=== PATIENT | female | born 1945 | race African-American/Black ===

== ENCOUNTER 2017-05-05 06:50 | Inpatient (IN) ==
--- NOTE | 2017-05-05 06:57 | Emergency Department Note ---
Arrival - Arrival Chief Complaint: Shortness of Breath Mode of Arrival: Stretcher Limitations: No Limitations Source: Patient, RN Notes Reviewed Time Seen by Provider: 05/05/17 06:55 - History of Present Illness HPI Narrative: Patient is a 71-year-old black female with history of end-stage renal disease who is on Friday hemodialysis by Dr. Antoine. The patient presented to [facility] in [facility] this morning with shortness of breath. The patient states that she awakened at 1 AM with shortness of breath. She denies being noncompliant with her diet over the weekend. The patient states that she went to dialysis on Friday as scheduled. The patient was noted to be markedly hypertensive at [facility]. The patient was placed on a nonrebreather and transferred to [facility] for further treatment and evaluation. The patient recently underwent left heart cath that [facility]. The patient was transferred to [facility] as they([facility]) had no critical care beds. Onset (ago): hour(s) (6) Consistency: constant Severity: moderate Quality: other Allergies/Adverse Reactions: Allergies Allergy/AdvReac Type Severity Reaction Status Date / Time No Known Allergies Allergy Verified 05/05/17 07:07 Home Medications: Home Medications Medication Instructions Recorded Confirmed Type Carvedilol 25 mg PO BID 03/14/16 05/01/17 History Estradiol [Estradiol Tab] 1 mg PO DAILY 03/14/16 05/01/17 History cloNIDine HCl [Clonidine HCl] 0.1 mg PO TID 03/14/16 05/01/17 History Insulin Detemir [Levemir] 4 unit SUBCUT BEDTIME 08/20/16 05/01/17 History NIFEdipine XL TAB [Procardia Xl] 90 mg PO DAILY 08/20/16 05/01/17 History Bisacodyl [Correctol] 5 mg PO DAILY PRN 08/22/16 05/01/17 History Calcium Acetate 667 mg PO TID W/MEALS 08/22/16 05/01/17 History Calcium Acetate 667 mg PO WITH SNACKS 08/22/16 05/01/17 History Docusate Sodium Cap [Colace Cap] 100 mg PO BID PRN 08/22/16 05/01/17 History Lidocaine/Prilocaine 1 applic TOP MOWEFR 08/22/16 05/01/17 History [Lidocaine/Prilocaine 2.5%-2.5% Cream Kit] Atorvastatin [Lipitor] 40 mg PO BEDTIME #30 tablet 08/23/16 05/01/17 Rx Heparin Inj 2,000 unit IV .EA DIALYSIS PORT 08/23/16 05/01/17 Rx PRN #0 vial Ticagrelor [Brilinta] 90 mg PO BID #60 tablet 08/23/16 05/01/17 Rx hydrALAZINE TAB [Apresoline Tab] 100 mg PO TID #90 tablet 08/23/16 05/01/17 Rx Aspirin EC Tab 81 mg PO BEDTIME 05/01/17 05/01/17 History Review of System - Review of System 12 point system: reviewed and no additional remarkable complaints except as stated - Review of System Constitutional: Absent: chills, fever Respiratory: Absent: cough Cardiovascular: Absent: chest pain, palpitations Gastrointestinal: Absent: nausea, vomiting Medical,Surgical,& Family Hx - Medical History Cardio: History of: CAD, Hypertension Neurology: No history of: Seizures - Surgical History Cardiac Surgeries: Sugical HX of: Cardiac Catheterization - Family History Family History: Reports;: Family Diabetes, Family Heart Disease, Family Hypertension - Social History Smoking Status: Never smoker Exam Vital Signs: Vital Signs Temperature 96.5 F L 05/05/17 06:59 Pulse Rate 90 05/05/17 06:59 Respiratory Rate 20 05/05/17 07:17 Blood Pressure 227/98 05/05/17 06:59 O2 Sat by Pulse Oximetry 100 05/05/17 06:59 GENERAL: This is a well-nourished well-developed black female in no apparent distress. VITAL SIGNS: Reviewed HEENT: Head is atraumatic and normocephalic. Pupils are equal round react to light. Extraocular movements are intact. Oropharynx is benign with moist mucous membranes. NECK: Neck is soft and supple without tenderness. There are no masses. There is no lymphadenopathy. LUNGS: Lungs are clear to auscultation. Chest rises symmetrically. There is no chest wall tenderness. CV: Heart is regular rate and rhythm without murmurs rubs or gallops. ABDOMEN: Abdomen is soft, nontender to palpation. There are no abdominal abnormal masses palpated. There is no organomegaly. Bowel sounds are present and active. SKIN: Skin is warm and dry. No rash. EXTREMITIES: Patient has full range of motion without tenderness. There is no pedal edema. NEUROLOGIC: Awake alert and oriented 4. Cranial nerves II through XII are grossly intact. Motor is 5 over 5 in all extremities bilaterally. Course - Consultations Consultation #1: Discussed with hospitalist. Patient will be admitted to their service. Time: 07:05 Results - Labs Lab Results: I have reviewed the patients labs Labs: Lab performed at [facility] reviewed by me: Chemistry: Sodium 143, potassium 4.7, chloride 99, CO2 23, BUN 49, creatinine 10.4, glucose 216, magnesium 2.5 Lactic acid 5.1 CBC: WBCs 10,600, hemoglobin 9.9, hematocrit 31.6, platelet count 195,000 EKG: Sinus tachycardia with occasional PVCs, ST segment depression inferiorly, rate 114, LVH ABG: PH 7.29, PCO2 52, PO2 161 Urinalysis specific gravity 1.010, pH 8.0, nitrite negative, protein 4+, glucose 2+-3+, RBCs 5-10 BNP: Greater than 20,000 - EKG EKG results: interpreted by ERMD - Impressions EKG performed in the emergency department: Right 91, sinus rhythm, LVH with repolarization abnormality - Diagnostic Findings Procedure: Chest x-ray: image reviewed by me (Chest x-ray performed at [facility]: Increased pulmonary markings bilaterally. Dialysis catheter is in place with the tip in the superior vena cava.) Disposition Clinical Impression: End-stage renal disease on hemodialysis, Dyspnea, Acute respiratory failure, Malignant hypertension, Diabetes mellitus, Pulmonary edema Case discussed with: patient Disposition: Still a Patient Condition: Stable Time of Disposition: 07:04
--- NOTE | 2017-05-05 07:01 | Order Completion Report ---
See report scanned to EMR
[2017-05-05] MEDS ORDERED: hydrALAZINE 20 MG/1 ML VIAL IV STA (07:11)
[2017-05-05] MEDS ORDERED: hydrALAZINE 20 MG/1 ML VIAL ONE (07:11)
[2017-05-05] MEDS ORDERED: niCARdipine INJ 25 MG in SODIUM CHLORIDE 0.9% 240 ML IV SCH (07:30)
--- NOTE | 2017-05-05 07:32 | XRay Report ---
XR chest 1V portable Indication: Dyspnea Comparison: 05 May 2017 at 4:36 AM Findings: The heart and mediastinum are stable in size and configuration. Right internal jugular catheters unchanged in position. The pulmonary vascularity is increased with bilateral increased interstitial lung density similar to previous. No other lung infiltrates, effusions, pneumothorax or other abnormality is demonstrated. Impression: Findings suggest cardiac decompensation similar to previous. PROCEDURE INTERPRETED AT [facility] DEPARTMENT OF RADIOLOGY Final Report Signed by: Dr. Remy Early
[2017-05-05] MEDS ORDERED: cloNIDine 0.1 MG TABLET ONE (07:35)
[2017-05-05] MEDS ORDERED: cloNIDine 0.1 MG TABLET PO STA (07:38)
--- NOTE | 2017-05-05 08:01 | Hospitalist History & Physical ---
Assessment and Plan (1) Dyspnea Status: Acute Assessment and plan: Chest x-ray was significant for increased pulmonary vascularity with bilateral increased interstitial lung density. This is likely secondary to severe fluid volume overload. Nephrology has been consulted for emergent hemodialysis. We will continue supportive care as previously ordered. Current Visit: Yes (2) End-stage renal disease on hemodialysis Status: Acute Assessment and plan: Last hemodialysis session was reported on Tuesday, May 02, 2017. The patient is generally dialyzed on [id number]. The patient reported a uneventful hemodialysis session. In addition, the patient reported that she has been compliant with all of her medication and dietary regimen. Nephrology has been consulted for emergent hemodialysis. Nephrology to manage. Current Visit: Yes History of Present Illness Chief complaint: Shortness of breath History of present illness: This is a chronically ill 71-year-old female that presented to the ED at [facility] as a transfer from the [facility] in [place], [place] this morning for the evaluation of shortness of breath. The patient has a medical history significant for end-stage renal disease, insulin-dependent diabetes mellitus, chronic constipation, hypertension , and coronary artery disease. Patient has a surgical history significant for cardiac catheterization. Patient reported the onset of symptoms this morning around 0100. The patient reported that she was awakened out of her sleep due to severe shortness of breath. She became alarmed and presented to the ED at [facility] [place] in [place], [place] for further evaluation. The patient was evaluated at the time of presentation at the [facility]. The patient was noted to be grossly hypertensive with systolic blood pressures well above 220. In addition, the patient was noted to be experiencing severe respiratory difficulties prompting a subsequent transfer to [facility] for further evaluation. The patient was assessed at the time of ED presentation at [facility]. The patient remained grossly hypertensive with a blood pressure noted at 227/98. Multiple intravenous antihypertensive agents were initiated and the patient's blood pressure slowly improved. Labs were obtained at [facility] which were significant for sodium 143, potassium 4.7 , chloride 99, carbon dioxide 23, BUN 49, creatinine 10.4, glucose 216, magnesium 2.5, lactic acid 5.1, white blood cell count 10.6, hemoglobin 9.9, hematocrit 31.6, and platelet 195. In addition, the patient's BNP was noted to be greater than 20,000. Arterial blood gas reported pH 7.29, PCO2 52, PO2 161. Chest x-ray was significant for increased pulmonary vascularity with bilateral increased interstitial lung density. These findings suggest cardiac decompensation however, no additional lung infiltrates, effusions, pneumothorax , or other abnormality was demonstrated. After brief discussion with both Dr. Casarez and Dr. Low, the patient will be admitted to the hospitalist service for continuation of care. Due to the severity of the patient's presenting symptoms, a nephrology consultation has been requested. Home medications have been reviewed and reconciled. CODE STATUS discussed, patient is a FULL CODE. Home Medications Medication Instructions Recorded Confirmed Type Carvedilol 25 mg PO BID 03/14/16 05/01/17 History Estradiol [Estradiol Tab] 1 mg PO DAILY 03/14/16 05/01/17 History cloNIDine HCl [Clonidine HCl] 0.1 mg PO TID 03/14/16 05/01/17 History Insulin Detemir [Levemir] 4 unit SUBCUT BEDTIME 08/20/16 05/01/17 History NIFEdipine XL TAB [Procardia Xl] 90 mg PO DAILY 08/20/16 05/01/17 History Bisacodyl [Correctol] 5 mg PO DAILY PRN 08/22/16 05/01/17 History Calcium Acetate 667 mg PO TID W/MEALS 08/22/16 05/01/17 History Calcium Acetate 667 mg PO WITH SNACKS 08/22/16 05/01/17 History Docusate Sodium Cap [Colace Cap] 100 mg PO BID PRN 08/22/16 05/01/17 History Lidocaine/Prilocaine 1 applic TOP MOWEFR 08/22/16 05/01/17 History [Lidocaine/Prilocaine 2.5%-2.5% Cream Kit] Atorvastatin [Lipitor] 40 mg PO BEDTIME #30 tablet 08/23/16 05/01/17 Rx Heparin Inj 2,000 unit IV .EA DIALYSIS PORT 08/23/16 05/01/17 Rx PRN #0 vial Ticagrelor [Brilinta] 90 mg PO BID #60 tablet 08/23/16 05/01/17 Rx hydrALAZINE TAB [Apresoline Tab] 100 mg PO TID #90 tablet 08/23/16 05/01/17 Rx Aspirin EC Tab 81 mg PO BEDTIME 05/01/17 05/01/17 History Allergies Allergy/AdvReac Type Severity Reaction Status Date / Time No Known Allergies Allergy Verified 05/05/17 07:07 Medical,Surgical,& Family Hx - Medical History Cardio: History of: CAD, Hypertension Neurology: No history of: Seizures - Surgical History Cardiac Surgeries: Sugical HX of: Cardiac Catheterization - Family History Family History: Reports;: Family Diabetes, Family Heart Disease, Family Hypertension - Social History Smoking Status: Never smoker Have you smoked in the last 12 months: No Frequency of Alcohol Use: None Type of Drug Use: None Marital Status: Single Lives With:: Alone Functional capacity: independent ambulation 12 point system: reviewed and no additional remarkable complaints except as stated Exam - Constitutional Vitals: Period Temp Pulse Resp BP Sys/Sexton Pulse Ox Last 24 Hr 96.5 F-96.5 F 90-90 20-20 227-227/98-98 100 General appearance: normal weight, mild distress - Head Head exam: Present: normal inspection, normocephalic, atraumatic - Eye Eye exam: Present: EOMI. Absent: conjunctival injection Pupils: Present: ERIC, normal accommodation - ENT ENT exam: Present: normal exam, normal external ear exam, normal oropharynx - Neck Neck exam: Present: normal inspection. Absent: lymphadenopathy, meningismus, thyromegaly - Respiratory Respiratory exam: Absent: clear to auscultation bilaterally, rales, rhonchi, stridor - Cardiovascular Cardiovascular exam: Present: regular rate and rhythm, other (Vas-Cath to right upper chest no). Absent: carotid bruit, diastolic murmur, gallop, JVD, rubs, systolic murmur - GI/Abdominal GI/Abdominal exam: Present: normal bowel sounds, soft - Extremities Exam Extremities exam: Present: normal inspection, normal capillary refill, full ROM. Absent: edema - Back Exam Back exam: Present: normal inspection - Neurological Exam Neurological exam: Present: alert - Psychiatric Psychiatric exam: Present: normal affect, normal mood - Skin Skin exam: Present: normal color, warm, dry
--- NOTE | 2017-05-05 11:57 | Dialysis Note ---
Dialysis Note - Dialysis Note Ms. Sandoval is seen on hemodialysis. She is breathing comfortably now after having 2-1/2 kg removed. We are shooting to remove 4 kg in total.
[2017-05-05] MEDS: CARVEDILOL 25 MG TABLET PO SCH ×2 (12:20→21:30)
--- NOTE | 2017-05-05 12:29 | Nephrology Consult Note ---
History of Present Illness Chief complaint: Shortness of breath in a patient with end-stage renal disease History of present illness: Ms. Sandoval is a 71 year old female with end-stage renal disease who dialyzes on a Friday basis in [facility]. The patient went to bed last night and awoke around 1 AM this morning with shortness of breath. Patient states she had an associated cough. She denies any chest pain. She did have some sweats with her shortness of breath. Patient states she has had to sit up to get her breath last night. The patient denies overindulging in any fluid or salty foods. Patient states she had a heart catheterization done about 4 days ago and this apparently was unremarkable per her report. Patient has a history of coronary artery disease and has had a stent in the past. ROS: Head - denies headaches ENT - denies sore throat Lymphatics - denies lymphadenopathy Hematology - denies bleeding problems Heart - denies chest pain Lungs -positive shortness of breath Abdomen - denies abdominal pain Musculoskeletal - denies arthritis Skin - denies rash Neurology - denies stroke General - denies fever PE: General: in no acute distress Eyes: Pupils are round and reactive, conjunctivae are clear ENT: Nose is clear, O/P is benign Neck: Supple, no thyromegaly Lymphatics: No cervical, supraclavicular or axillary adenopathy Heart: Regular rate and rhythm, no edema Lungs: Clear to auscultation anteriorly, chest expansion symmetric Abdomen: Soft, normoactive bowel sounds, no hepatomegaly Musculoskeletal: No joint erythema or effusions or joint asymmetry Skin: Normal turgor, normal hydration, no rash Neuro/Psych: Alert and cooperative with fair insight Home Medications Medication Instructions Recorded Confirmed Type Carvedilol 25 mg PO BID 03/14/16 05/01/17 History Estradiol [Estradiol Tab] 1 mg PO DAILY 03/14/16 05/01/17 History cloNIDine HCl [Clonidine HCl] 0.1 mg PO TID 03/14/16 05/01/17 History Insulin Detemir [Levemir] 4 unit SUBCUT BEDTIME 08/20/16 05/01/17 History NIFEdipine XL TAB [Procardia Xl] 90 mg PO DAILY 08/20/16 05/01/17 History Bisacodyl [Correctol] 5 mg PO DAILY PRN 08/22/16 05/01/17 History Calcium Acetate 667 mg PO TID W/MEALS 08/22/16 05/01/17 History Calcium Acetate 667 mg PO WITH SNACKS 08/22/16 05/01/17 History Docusate Sodium Cap [Colace Cap] 100 mg PO BID PRN 08/22/16 05/01/17 History Lidocaine/Prilocaine 1 applic TOP MOWEFR 08/22/16 05/01/17 History [Lidocaine/Prilocaine 2.5%-2.5% Cream Kit] Atorvastatin [Lipitor] 40 mg PO BEDTIME #30 tablet 08/23/16 05/01/17 Rx Heparin Inj 2,000 unit IV .EA DIALYSIS PORT 08/23/16 05/01/17 Rx PRN #0 vial Ticagrelor [Brilinta] 90 mg PO BID #60 tablet 08/23/16 05/01/17 Rx hydrALAZINE TAB [Apresoline Tab] 100 mg PO TID #90 tablet 08/23/16 05/01/17 Rx Aspirin EC Tab 81 mg PO BEDTIME 05/01/17 05/01/17 History Allergies Allergy/AdvReac Type Severity Reaction Status Date / Time No Known Allergies Allergy Verified 05/05/17 07:07 Medical,Surgical,& Family Hx - Medical History Cardio: History of: CAD, Hypertension Neurology: No history of: Seizures - Surgical History Cardiac Surgeries: Sugical HX of: Cardiac Catheterization - Family History Family History: Reports;: Family Diabetes, Family Heart Disease, Family Hypertension - Social History Smoking Status: Never smoker Frequency of Alcohol Use: None Type of Drug Use: None Exam - Vital Signs Vital signs: Period Temp Pulse Resp BP Sys/Sexton Pulse Ox Last 24 Hr 96.5 F-96.5 F 82-90 20-20 197-227/94-98 98-100 Assessment and Plan (1) Dyspnea Status: Acute Assessment and plan: This patient was awoken last night with shortness of breath that improved with sitting up, her chest x-ray shows increased pulmonary vascularization, she has a history of coronary artery disease with a stent placed about 8 months ago her ejection fraction is around 50-60% by coronary angiogram done in August 2016. Current Visit: Yes (2) Diabetes mellitus Status: Acute Current Visit: Yes (3) End-stage renal disease on hemodialysis Status: Acute Assessment and plan: Patient is seen on hemodialysis, she initially had 4 L be removed however near the end of the treatment the patient developed severe cramping. Current Visit: Yes (4) Malignant hypertension Status: Acute Current Visit: Yes (5) Pulmonary edema Status: Acute Current Visit: Yes (6) CAD (coronary artery disease) Status: Chronic Current Visit: No (7) Dyslipidemia Status: Chronic Current Visit: No
[2017-05-05 13:00] LABS: Basophils % 0.2 % (0.0-0.8); Eosinophils % 0.3 % (0.00-10.9); Hemoglobin 10.3 GM/DL (12.0-16.0); Immature Granulocytes % 0.8 %; Immature Granulocytes Absolute 0.08 #; Lymphocytes # 0.7 10*3/uL (1.4-4.0); Lymphocytes % 6.3 % (21.3-54.2); Mean Corpuscular HGB Conc 32.2 GM/DL (32-36); Mean Corpuscular Hemoglobin 28 PG (27-34); Mean Corpuscular Volume 87.9 FL (87-102); Monocytes # 0.2 10*3/uL (0.11-0.8); Monocytes % 1.8 % (1.7-12.7); NRBC # 0.03 10*3/uL; Neutrophils # 9.7 10*3/uL (1.4-7.4); Neutrophils % 90.6 % (38.7-73.9); Platelet Count 159 T/CUMM (130-400); Red Blood Count 3.64 MC/CUMM (3.8-5.5); Red Cell Distribution Width 15.8 % (9.3-17.3); White Blood Count 10.7 T/CUMM (4-12)
[2017-05-05] MEDS ORDERED: HEPARIN 10,000 UNIT/10 ML VIAL IV PRN (13:11)
[2017-05-05] MEDS ORDERED: ACETAMINOPHEN 325 MG TABLET PO PRN (13:41)
[2017-05-05] MEDS ORDERED: GLUCAGON 1 MG VIAL IM PRN (13:41)
[2017-05-05] MEDS ORDERED: DEXTROSE 50% 25 GM/50 ML SYRINGE IV PRN (13:41)
[2017-05-05] MEDS ORDERED: ONDANSETRON 4 MG/2 ML VIAL IV PRN (13:41)
[2017-05-05] MEDS: INSULIN LISPRO 100 UNIT/ML SUBCUT SCH ×3 (13:41→21:32)
[2017-05-05] MEDS ORDERED: DOCUSATE SODIUM 100 MG CAPSULE PO PRN (15:54)
[2017-05-05] MEDS ORDERED: BISACODYL 5 MG TABLET PO PRN (15:54)
[2017-05-05] MEDS ORDERED: CALCIUM ACETATE 667 MG CAPSULE PO SCH (16:00)
[2017-05-05] MEDS: CALCIUM ACETATE 667 MG CAPSULE PO SCH (17:01)
[2017-05-05 18:20] LABS: Burr Cells Few; Lymphocytes 7 % (20-55); Platelet Estimate Normal; Poikilocytosis Slight; Segmented Neutrophils 92 % (50-85); Total Cells Counted 100
[2017-05-05 18:21] LABS: Tear Drop Cells Few
[2017-05-05] MEDS: hydrALAZINE 20 MG/1 ML VIAL IV PRN (18:33)
[2017-05-05] MEDS ORDERED: CYCLOBENZAPRINE 10 MG TABLET PO PRN (18:38)
[2017-05-05] MEDS ORDERED: INSULIN GLARGINE 100 UNIT/ML SUBCUT SCH (21:00)
[2017-05-05] MEDS ORDERED: ATORVASTATIN 40 MG TABLET PO SCH (21:00)
[2017-05-05] MEDS ORDERED: ASPIRIN EC 81 MG TABLET PO SCH (21:00)
[2017-05-06 06:18] LABS: Basophils % 0.2 % (0.0-0.8); Eosinophils % 0.5 % (0.00-10.9); Hematocrit 24.6 VOL% (35.7-47.0); Immature Granulocytes % 0.2 %; Immature Granulocytes Absolute 0.02 #; Lymphocytes # 1.8 10*3/uL (1.4-4.0); Lymphocytes % 21.5 % (21.3-54.2); Mean Corpuscular HGB Conc 32.5 GM/DL (32-36); Mean Corpuscular Hemoglobin 29 PG (27-34); Mean Corpuscular Volume 87.9 FL (87-102); Mean Platelet Volume 12.9 FL (9.6-12.0); Monocytes # 0.8 10*3/uL (0.11-0.8); Monocytes % 9.9 % (1.7-12.7); NRBC # 0.02 10*3/uL; Neutrophils # 5.6 10*3/uL (1.4-7.4); Neutrophils % 67.7 % (38.7-73.9); Platelet Count 155 T/CUMM (130-400); Red Cell Distribution Width 15.9 % (9.3-17.3); White Blood Count 8.3 T/CUMM (4-12)
[2017-05-06] MEDS: hydrALAZINE 20 MG/1 ML VIAL IV PRN (06:29)
[2017-05-06 06:49] LABS: Calcium 8.9 MG/DL (8.5-10.1); Osmolality,Calculated 296.5 MOS/KG (273-304); Potassium 4.7 MMOL/L (3.5-5.1)
--- NOTE | 2017-05-06 08:21 | Nephrology Progress Note ---
Nephrology - PN: Subj Interval history: Patient is breathing much better today. She is asking about going home. Review of systems GI she denies nausea or vomiting Physical exam general the patient is in no acute distress, she is lying flat in bed. Assessment/plan 1. End-stage renal disease-we will continue hemodialysis support 2. Hypertension-patient's blood pressure is improved, I agree with the changes to her antihypertensive medications 3. Diabetes mellitus 4. Pulmonary edema-I spoke to the patient about weight gains between dialysis treatments and also adjusting her dry weight downward possibly. I will discuss this with the hemodialysis team in the outpatient setting. Patient is okay for discharge from my standpoint. Exam (PN)-Nephrology - Vital Signs Vital signs: Period Temp Pulse Resp BP Sys/Sexton Pulse Ox Last 24 Hr 97.7 F-100.1 F 74-89 16-20 149-197/68-94 96-98 - Lab 05/06/17 05:49 05/06/17 05:49 Most recent lab results Calcium 8.9 MG/DL (8.5-10.1) 05/06/17 05:49 Assessment and Plan (1) Dyspnea Status: Acute Assessment and plan: This patient was awoken last night with shortness of breath that improved with sitting up, her chest x-ray shows increased pulmonary vascularization, she has a history of coronary artery disease with a stent placed about 8 months ago her ejection fraction is around 50-60% by coronary angiogram done in August 2016. Current Visit: Yes (2) Diabetes mellitus Status: Acute Current Visit: Yes (3) End-stage renal disease on hemodialysis Status: Acute Assessment and plan: Patient is seen on hemodialysis, she initially had 4 L be removed however near the end of the treatment the patient developed severe cramping. Current Visit: Yes (4) Malignant hypertension Status: Acute Current Visit: Yes (5) Pulmonary edema Status: Acute Current Visit: Yes (6) CAD (coronary artery disease) Status: Chronic Current Visit: No (7) Dyslipidemia Status: Chronic Current Visit: No
[2017-05-06] MEDS: INSULIN LISPRO 100 UNIT/ML SUBCUT SCH ×2 (08:32→12:28)
--- NOTE | 2017-05-06 08:40 | XRay Report ---
XR chest 1V portable Indication: SOB Comparison: Chest x-ray dated May 05, 2017 Technique: Single frontal view of the chest. Findings: Improved bilateral mid and lower lung consolidation with minimal remaining suggesting improved pulmonary edema or pneumonia. Borderline heart size. Visualized osseous and surrounding soft tissue structures appear grossly unchanged. Right-sided central venous catheter appears unchanged. IMPRESSION: As above. PROCEDURE INTERPRETED AT [facility] DEPARTMENT OF RADIOLOGY Final Report Signed by: Dr Raj Hopkins
[2017-05-06] MEDS ORDERED: CLOPIDOGREL 75 MG TABLET PO SCH (09:00)
[2017-05-06] MEDS ORDERED: ESTRADIOL 1 MG TABLET PO SCH (09:00)
[2017-05-06] MEDS: ISOSORBIDE DINITRATE 20 MG TABLET PO SCH ×2 (09:41→14:21)
[2017-05-06] MEDS: CARVEDILOL 25 MG TABLET PO SCH (09:41)
[2017-05-06] MEDS: CALCIUM ACETATE 667 MG CAPSULE PO SCH ×2 (09:41→12:30)
[2017-05-06] MEDS ORDERED: LISINOPRIL 10 MG TABLET PO SCH (13:30)
--- NOTE | 2017-05-06 13:35 | Hospitalist Progress Note ---
Hospitalist: Subjective Interval history: Mrs Sandoval is feeling much better today. She is breathing easily- she had 3000 taken off yesterday at dialysis. Dr Lozoya is going to discuss a new lower dry weight with the dialysis center. Her BP has remained very high despite increases in her meds. Caridology consulted. She had recent cath with CAD and plan to treat medically about a week ago. assessment- HTN not controlled with pulmonary edema, ESRD Plan- consult to cardiology to further tune up her HTN treatment. She will see DR Galindo in clinic after discharge. Perhaps home tomorrow if her BP control has improved. Exam - Constitutional Vitals: Period Temp Pulse Resp BP Sys/Sexton Pulse Ox Last 24 Hr 97.7 F-100.1 F 69-89 16-20 144-192/68-83 93-98 General appearance: normal weight, no acute distress - Eye Eye exam: Present: EOMI. Absent: scleral icterus - Respiratory Respiratory exam: Present: clear to auscultation bilaterally - Cardiovascular Cardiovascular exam: Present: regular rate and rhythm - GI/Abdominal GI/Abdominal exam: Present: normal bowel sounds, soft. Absent: tenderness - Extremities Exam Extremities exam: Absent: edema Results - Labs CBC & BMP: 05/06/17 05:49 05/06/17 05:49 Lab Results: I have reviewed the past 24 hour labs
--- NOTE | 2017-05-06 13:56 | Cardiology Consult Note ---
Assessment and Plan - Time spent with patient Time spent with patient: Greater than 30 minutes (1) Uncontrolled hypertension Status: Acute Assessment and plan: SEE PLAN OF CARE LISTED BELOW. Current Visit: Yes (2) Anemia of chronic disease Status: Chronic Assessment and plan: SEE PLAN OF CARE LISTED BELOW. Current Visit: Yes (3) Dyspnea Status: Resolved Assessment and plan: SEE PLAN OF CARE LISTED BELOW. Current Visit: Yes (4) CAD (coronary artery disease) Status: Chronic Assessment and plan: SEE PLAN OF CARE LISTED BELOW. Current Visit: No (5) Diabetes Status: Chronic Assessment and plan: SEE PLAN OF CARE LISTED BELOW. Current Visit: No (6) Dyslipidemia Status: Chronic Assessment and plan: SEE PLAN OF CARE LISTED BELOW. Current Visit: No (7) ESRD on hemodialysis Status: Chronic Assessment and plan: SEE PLAN OF CARE LISTED BELOW. Current Visit: No History of Present Illness - Data of Consult Patient: known to practice within the last 3 years Consult date: 05/06/17 Requesting Physician: Daphney Low - Consult Narrative Reason for consult: Uncontrolled hypertension History of present illness: VECTOR CONTROL SPECIALIST: Dr. Galindo Ms. Sandoval is a 71 year old female with known history of CAD, routinely [address] Galindo. Cardiac risk factors include: Known CAD, diabetes, hypertension, dyslipidemia, advanced age and sedentary lifestyle. Lifetime non-smoker. Past medical history includes: End-stage renal disease on dialysis, peripheral vascular disease, carotid bruit, anemia of chronic disease and heart murmur. Recent nuclear stress test performed in the cardiology clinic revealed a new reduction in ejection fraction as well as high risk nuclear stress test. Subsequently, she was scheduled for repeat heart catheterization. This was performed by Dr. Galindo May 01, 2017 which revealed diffuse mild to moderate coronary artery disease. Ramus intermedius branch with significant disease (60-70% stenosis) but because of the ostial nature of the disease it was felt medical management was the best option. No other significant obstructive disease was noted in need of intervention. Preserved EF per [facility]. Patient presented to [facility] May 05, 2017 with complaints of dyspnea and orthopnea. She does have end-stage renal disease and is on dialysis. Normal dialysis schedule is Friday, Friday and Friday. She denies missing dialysis. She reports that she has been doing reasonably well after having her recent heart catheterization. She denies angina. She was transferred to our facility from [facility] in [place]. Chest x- ray was performed when she arrived at our facility. This revealed cardiac decompensation. Nephrology was consulted and patient was taken emergently to dialysis. 4 L of fluid was removed and patient has been doing remarkably better ever since. She is currently without complaints of dyspnea, orthopnea, MERRITT or PND. She is anxious for discharge home. However, this hospitalization her blood pressure has been suboptimally controlled. She reports that this is been an ongoing problem for quite some time. Cardiology was consulted to further assist. Patient tells me that Dr. Galindo had plans to adjust her medications when he saw her back in the cardiology clinic next week. She usually checks her blood pressure at home and systolic blood pressure usually ranges in the 160s-180s. She is without TIA symptoms. Denies blurry vision or change in vision. Patient was seen and examined on the telemetry unit. She has currently without points of chest pain, heaviness or tightness. Denies shortness of breath. Reports her breathing went back to normal after having dialysis yesterday. Systolic blood pressure this morning remains elevated in the 180s. This afternoon it did improve to 140s. Given her history of end-stage renal disease , I have discussed this patient personally with Dr. Brewer, her weapons designer and he feels as though it is okay to initiate PORFIRIO inhibitor. Lisinopril 10 mg daily has been started today. Hopeful that this will improve patient's blood pressure will allow him to be discharged home tomorrow. I have discussed this patient personally with Dr. Wells and he is agreeable to initiation of PORFIRIO inhibitor. Further plan and recommendations to follow. IMPRESSION AND PLAN: 1. UNCONTROLLED HYPERTENSION - Per patient report, her blood pressure has been uncontrolled for quite some time. It is been hard to manage. Dr. Galindo had plans to adjust medications when he saw her back in the clinic next week. Given her history of end-stage renal disease, I have discussed this patient personally with Dr. Brewer, her weapons designer and he feels as though it is okay to initiate PORFIRIO inhibitor. Lisinopril 10 mg daily has been started today. 2. KNOWN CAD - No evidence of ACS this admission. Continue dual antiplatelet therapy, beta-blockade, lipid-lowering agent and nitrates. 3. SHORTNESS OF BREATH - Improved after dialysis. Chest x-ray reveals volume overload, secondary to end-stage renal disease. Patient was emergently dialyzed yesterday. Chest x-ray has improved. 4. DIABETES - Continue sliding scale insulin. Management per attending 5. DYSLIPIDEMIA - Continue lipid-lowering agent. 6. ANEMIA OF CHRONIC DISEASE - Chronic, stable. Daily CBC. 7. END-STAGE RENAL DISEASE ON DIALYSIS - Nephrology following. Dialysis per their recommendations. CC: Daphney Low MD - Home Medications and Allergies Home Medications: Home Medications Medication Instructions Recorded Confirmed Type Carvedilol 25 mg PO BID 03/14/16 05/05/17 History Estradiol [Estradiol Tab] 1 mg PO DAILY 03/14/16 05/05/17 History cloNIDine HCl [Clonidine HCl] 0.2 mg PO BID 03/14/16 05/05/17 History Insulin Detemir [Levemir] 4 unit SUBCUT BEDTIME 08/20/16 05/05/17 History NIFEdipine XL TAB [Procardia Xl] 90 mg PO DAILY 08/20/16 05/05/17 History Bisacodyl [Correctol] 5 mg PO DAILY PRN 08/22/16 05/05/17 History Calcium Acetate 667 mg PO TID W/MEALS 08/22/16 05/05/17 History Calcium Acetate 667 mg PO WITH SNACKS 08/22/16 05/05/17 History Docusate Sodium Cap [Colace Cap] 100 mg PO BID PRN 08/22/16 05/05/17 History Lidocaine/Prilocaine 1 applic TOP MOWEFR PRN 08/22/16 05/05/17 History [Lidocaine/Prilocaine 2.5%-2.5% Cream Kit] Atorvastatin [Lipitor] 40 mg PO BEDTIME #30 tablet 08/23/16 05/05/17 Rx Heparin Inj 2,000 unit IV .EA DIALYSIS PORT 08/23/16 05/05/17 Rx PRN #0 vial Aspirin EC Tab 81 mg PO BEDTIME 05/01/17 05/05/17 History Clopidogrel [Plavix] 75 mg PO DAILY 05/05/17 05/05/17 History hydrALAZINE TAB [Apresoline Tab] 50 mg PO TID 05/05/17 05/05/17 History Allergies/Adverse Reactions: Allergies Allergy/AdvReac Type Severity Reaction Status Date / Time No Known Allergies Allergy Verified 05/05/17 07:07 - Constitutional Constitutional: Present: as per HPI. Absent: chills, fatigue, fever(s), headache(s), weakness, weight gain, weight loss - Cardiovascular Cardiovascular: Present: as per HPI. Absent: chest pain at rest, chest pain with activity, claudication, diaphoresis, dyspnea, dyspnea on exertion, edema, radiating jaw, neck or arm pain, lightheadedness, orthopnea, palpitations, PND - Respiratory Respiratory: Present: as per HPI. Absent: cough, dyspnea, hemoptysis, dyspnea on exertion, wheezing, snoring, pain on inspiration, change in phlegm color - Gastrointestinal Gastrointestinal: Present: as per HPI. Absent: abdominal pain, change in bowel habits, coffee ground emesis, heartburn, hematemesis, hematochezia, melena, nausea, vomiting - Neurological Neurological: Present: as per HPI. Absent: abnormal gait, abnormal speech, behavioral changes, dizziness, focal weakness, frequent falls, headache(s), syncope - Psychiatric Psychiatric: Present: as per HPI. Absent: anxiety, depression, panic attacks - Hematologic/Lymphatic Hematologic/Lymphatic: Present: as per HPI. Absent: easy bleeding, easy bruising, lymphadenopathy Medical,Surgical,& Family Hx - Medical History Cardio: History of: CAD, Hypertension Neurology: No history of: Seizures Endocrine: History of: Diabetes Mellitus (NIDDM), Dyslipidemia Renal: History of: Dialysis, Renal Failure Hematology: History of: Anemia - Surgical History Cardiac Surgeries: Sugical HX of: Cardiac Catheterization - Family History Family History: Reports;: Family Diabetes, Family Heart Disease, Family Hypertension - Social History Smoking Status: Never smoker Frequency of Alcohol Use: None Type of Drug Use: None Marital Status: Lives With:: Spouse Functional capacity: independent ambulation Physical Examination Vital Signs Temp Pulse Resp BP Pulse Ox 96.5 F L 90 20 227/98 100 05/05/17 06:59 05/05/17 06:59 05/05/17 06:59 05/05/17 06:59 05/05/17 06:59 Exam: General: Appears well with no apparent distress. Pleasant and cooperative. Appears comfortable. HEENT: PERRL, normocephalic, atraumatic. Mucous membranes moist. No jaundice noted. Conjunctiva moist and clear, sclerae anicteric Neck: No JVD/HJR, no thyromegaly or lymphadenopathy noted. No carotid bruit appreciated Cardiac: Regular rate and rhythm. Grade 2 systolic murmur. Lungs: Clear to auscultation without accessory muscle use to assist the respiratory pattern. Not requiring oxygen. Abdomen: Soft, bowel sounds normoactive. Nontender and nondistended. No abdominal bruit or thrill noted. No masses noted. Extremities: No clubbing, cyanosis noted. No edema noted. Upper extremity pulses 2+. Lower extremity pulses 2+. Capillary refill less than 3 seconds. Skin: No unusual lesions or rashes. No skin breakdown appreciated. Neuro: Awake, alert and oriented 3. Moves all extremities well without hemiparesis or paralysis. No essential tremor is appreciated. Result/EKG - Labs CBC & BMP: 05/06/17 05:49 05/06/17 05:49 Lab Results: I have reviewed the past 24 hour labs Labs: Laboratory Results - last 24 hr 05/05/17 05/05/17 05/05/17 12:54 15:36 20:34 WBC RBC Hgb Hct MCV MCH MCHC RDW Plt Count MPV Neut % (Auto) Lymph % (Auto) Josephine % (Auto) Eos % (Auto) Baso % (Auto) Neut # (Auto) Lymph # (Auto) Josephine # (Auto) Eos # (Auto) Baso # (Auto) Total Counted 100 Immature Gran % Nucleated RBC % Immature Gran # Segmented Neutrophils 92 H Lymphocytes 7 L Monocytes 1 L Nucleated RBCs # Platelet Estimate Normal Immature Plt Fraction Poikilocytosis Slight Tear Drop Cells Few [place] Cells Few Sodium Potassium Chloride Carbon Dioxide Anion Gap BUN Creatinine GFR Calculation BUN/Creatinine Ratio Glucose POC Glucose 257 H 161 H Calculated Osmolality Calcium 05/06/17 05/06/17 05/06/17 05:49 05:49 08:00 WBC 8.3 RBC 2.80 L D Hgb 8.0 L D Hct 24.6 L MCV 87.9 MCH 29 MCHC 32.5 RDW 15.9 Plt Count 155 MPV 12.9 H Neut % (Auto) 67.7 Lymph % (Auto) 21.5 Josephine % (Auto) 9.9 Eos % (Auto) 0.5 Baso % (Auto) 0.2 Neut # (Auto) 5.6 Lymph # (Auto) 1.8 Josephine # (Auto) 0.8 Eos # (Auto) 0.0 Baso # (Auto) 0.0 Total Counted Immature Gran % 0.2 Nucleated RBC % 0.2 Immature Gran # 0.02 Segmented Neutrophils Lymphocytes Monocytes Nucleated RBCs # 0.02 Platelet Estimate Immature Plt Fraction 0.0 Poikilocytosis Tear Drop Cells [place] Cells Sodium 139 Potassium 4.7 Chloride 101 Carbon Dioxide 26 Anion Gap 16.7 H BUN 65 H Creatinine 11.30 H GFR Calculation 4 BUN/Creatinine Ratio 5.00 L Glucose 120 H POC Glucose 139 H Calculated Osmolality 296.5 Calcium 8.9 05/06/17 11:53 WBC RBC Hgb Hct MCV MCH MCHC RDW Plt Count MPV Neut % (Auto) Lymph % (Auto) Josephine % (Auto) Eos % (Auto) Baso % (Auto) Neut # (Auto) Lymph # (Auto) Josephine # (Auto) Eos # (Auto) Baso # (Auto) Total Counted Immature Gran % Nucleated RBC % Immature Gran # Segmented Neutrophils Lymphocytes Monocytes Nucleated RBCs # Platelet Estimate Immature Plt Fraction Poikilocytosis Tear Drop Cells Nikky Cells Sodium Potassium Chloride Carbon Dioxide Anion Gap BUN Creatinine GFR Calculation BUN/Creatinine Ratio Glucose POC Glucose 206 H Calculated Osmolality Calcium
--- NOTE | 2017-05-06 14:18 | Discharge Summary ---
Hospital Course - Hospital Course Hospital Course: Mrs Sandoval presented to ER yesterday with HTN and pulmonary edema. She had dialysis yesterday and her edema resolved. She has longstanding HTN and says today that it is always high, with SBP in the 180s or higher and that last time she saw Dr Galindo (last week for cath with CAD for medical management) her BP was very high and he said he would adjust her BP meds when he saw her in clinic. I increased her hydralazine and started isordil. Also treated her with an increased dose of clonidine. I consulted Dr Wells who added lisinopril but hasn' t seen her yet to give his complete recommendations. She wants to go home and says explicitly that she is not interested in having me or Dr Wells attempt to lower her blood pressure while here. She understands that medical management of CAD includes blood pressure control and that HTN also leads to stroke but she is not willing to stay in the hospital any longer and only wants Dr Galindo's help with her blood pressure. I will discharge her as she requests. I have given her prescriptions for the med changes we made and sent them to her pharmacy. She will see DR Galindo in clinic next week. - Time spent with patient Time with patient DS: Greater than 30 minutes (discussion with patient about discharge plan and risks of discharge, medicine reconciliation, documentation required 45 minutes.) Diagnosis - Discharge Diagnosis (1) S/P coronary artery stent placement Status: Acute (2) ESRD on hemodialysis Status: Chronic (3) Dyslipidemia Status: Chronic (4) Diabetes Status: Chronic (5) PVD (peripheral vascular disease) Status: Chronic (6) CAD (coronary artery disease) Status: Chronic (7) Malignant hypertension Status: Resolved (8) Pulmonary edema Status: Resolved (9) Uncontrolled hypertension Status: Acute (10) Anemia of chronic disease Status: Chronic Specialty Discharge - Follow Up or Referrals Follow up with: Kyree Galindo MD [Physician] - 5 Days (keep appointment) Discharge Plan - Discharge Data Disposition: Disch To Home/Self Care Condition at Discharge: Stable Discharge Diet: diabetic diet, heart healthy, low salt diet Activity: resume usual activities as tolerated (dialysis as usual) - Discharge Medications New hydrALAZINE TAB [Apresoline Tab] 100 mg PO TID #90 tablet Isosorbide Dinitrate [Isordil] 20 mg PO TID #90 tablet Lisinopril [Prinivil] 10 mg PO DAILY #30 tablet Continue Estradiol [Estradiol Tab] 1 mg PO DAILY cloNIDine HCl [Clonidine HCl] 0.2 mg PO BID Carvedilol 25 mg PO BID NIFEdipine XL TAB [Procardia Xl] 90 mg PO DAILY Insulin Detemir [Levemir] 4 unit SUBCUT BEDTIME Bisacodyl [Correctol] 5 mg PO DAILY PRN PRN Reason: Constipation Calcium Acetate 667 mg PO TID W/MEALS Lidocaine/Prilocaine [Lidocaine/Prilocaine 2.5%-2.5% Cream Kit] 1 applic TOP MOWEFR PRN PRN Reason: Pain Clopidogrel [Plavix] 75 mg PO DAILY Docusate Sodium Cap [Colace Cap] 100 mg PO BID PRN PRN Reason: Constipation Calcium Acetate 667 mg PO WITH SNACKS Heparin Inj 2,000 unit IV .EA DIALYSIS PORT PRN #0 vial PRN Reason: DIALYSIS Atorvastatin [Lipitor] 40 mg PO BEDTIME #30 tablet Aspirin EC Tab 81 mg PO BEDTIME Discontinued hydrALAZINE TAB [Apresoline Tab] 50 mg PO TID - Follow Up or Referral - Forms/Instructions Exam - Constitutional Vitals: Period Temp Pulse Resp BP Sys/S[place]on Pulse Ox Last 24 Hr 97.7 F-100.1 F 69-89 16-20 144-192/68-83 93-98 General appearance: normal weight, no acute distress - Eye Eye exam: Present: EOMI. Absent: scleral icterus - Respiratory Respiratory exam: Present: clear to auscultation bilaterally - Cardiovascular Cardiovascular exam: Present: regular rate and rhythm - GI/Abdominal GI/Abdominal exam: Present: normal bowel sounds, soft. Absent: tenderness - Extremities Exam Extremities exam: Absent: edema Discharge Results Procedures and tests throughout hospitalization: Pending Orders 05/07/17 04:00 BMP w/ Mg [Basic Metabolic Panel w/Mg] IN AM CBC [Comp Blood Count Auto Diff] IN AM Labs on day of discharge: Labs from last 24 hours 05/06/17 05/06/17 05/06/17 11:53 08:00 05:49 WBC RBC Hgb Hct MCV MCH MCHC RDW Plt Count MPV Neut % (Auto) Lymph % (Auto) [place] % (Auto) Eos % (Auto) Baso % (Auto) Neut # (Auto) Lymph # (Auto) [place] # (Auto) Eos # (Auto) Baso # (Auto) Total Counted Immature Gran % Nucleated RBC % Immature Gran # Segmented Neutrophils Lymphocytes Monocytes Nucleated RBCs # Platelet Estimate Immature Plt Fraction Poikilocytosis Tear Drop Cells [place] Cells Sodium 139 Potassium 4.7 Chloride 101 Carbon Dioxide 26 Anion Gap 16.7 H BUN 65 H Creatinine 11.30 H GFR Calculation 4 BUN/Creatinine Ratio 5.00 L Glucose 120 H POC Glucose 206 H 139 H Calculated Osmolality 296.5 Calcium 8.9 05/06/17 05/05/17 05/05/17 05:49 20:34 15:36 WBC 8.3 RBC 2.80 L D Hgb 8.0 L D Hct 24.6 L MCV 87.9 MCH 29 MCHC 32.5 RDW 15.9 Plt Count 155 MPV 12.9 H Neut % (Auto) 67.7 Lymph % (Auto) 21.5 [place] % (Auto) 9.9 Eos % (Auto) 0.5 Baso % (Auto) 0.2 Neut # (Auto) 5.6 Lymph # (Auto) 1.8 [place] # (Auto) 0.8 Eos # (Auto) 0.0 Baso # (Auto) 0.0 Total Counted Immature Gran % 0.2 Nucleated RBC % 0.2 Immature Gran # 0.02 Segmented Neutrophils Lymphocytes Monocytes Nucleated RBCs # 0.02 Platelet Estimate Immature Plt Fraction 0.0 Poikilocytosis Tear Drop Cells [place] Cells Sodium Potassium Chloride Carbon Dioxide Anion Gap BUN Creatinine GFR Calculation BUN/Creatinine Ratio Glucose POC Glucose 161 H 257 H Calculated Osmolality Calcium 05/05/17 12:54 WBC RBC Hgb Hct MCV MCH MCHC RDW Plt Count MPV Neut % (Auto) Lymph % (Auto) [place] % (Auto) Eos % (Auto) Baso % (Auto) Neut # (Auto) Lymph # (Auto) [place] # (Auto) Eos # (Auto) Baso # (Auto) Total Counted 100 Immature Gran % Nucleated RBC % Immature Gran # Segmented Neutrophils 92 H Lymphocytes 7 L Monocytes 1 L Nucleated RBCs # Platelet Estimate Normal Immature Plt Fraction Poikilocytosis Slight Tear Drop Cells Few [place] Cells Few Sodium Potassium Chloride Carbon Dioxide Anion Gap BUN Creatinine GFR Calculation BUN/Creatinine Ratio Glucose POC Glucose Calculated Osmolality Calcium DS: Provider Date of admission: 05/05/17 07:25 Primary care physician: Negrita Alcala Attending physician on admission: Daphney Low MD Consults: 05/05/17 07:27 Consult to Physician [CONS] Routine Comment: Consulting Provider: Michael Brewer When should Consulting Provider be notified: Now 05/05/17 13:41 Consult to Case Mgmt/Social Srvs [CONS] Routine Reason for Case Mgmt/Social Srvs: Discharge Planning 05/06/17 09:36 Consult to Physician [CONS] Routine Comment: uncontrolled HTN Consulting Provider: Miguel Wells Person Notified: Luis Date Notified: 05/06/17 Time Notified: 10:50 Discharging clinician: Daphney Low MD
[2017-05-06 16:45] VITALS: BP 153/71
--- NOTE | 2017-05-07 12:59 | Physician Query Form ---
CLICK EDIT DOCUMENT TO SELECT QUERY ANSWER --> OK --> SIGN Niecy Godinez RN, CCDS Certified Clinical Catheter Finisher And Inspector W) [phone] (f) [phone] [email or web address]: Make your selection(s) from the choices in EACH section by typing an "x" and enter comments in the comment section. Please use your independent medical judgment in providing your response. This request does not imply that any particular answer is desired or expected. CLINICAL INDICATORS: (Providers should not edit this section) The medical record indicates that the patient was admitted with Pulmonary Edema , "Cardiac Decompensation", "ejection fraction is around 50-60%" and the patient was emergently dialyzed. Please provide further specificity regarding CHF. ACUITY: ( x) Acute ( ) Chronic ( ) Acute on Chronic ( ) Clinically unable to determine TYPE: ( ) Systolic (HFrEF - heart failure with reduced systolic function/EF) (x ) Diastolic (HFpEF - heart failure with preserved systolic function/EF) ( ) Combined Systolic/Diastolic ( ) Other, please specify: ( ) Clinically unable to determine ( ) Past Medical History of Systolic CHF (x ) Past Medical History of Diastolic CHF ( ) Clinically unable to determine COMMENTS: PLEASE ALSO DOCUMENT RESPONSE IN PROGRESS NOTES AND/OR DISCHARGE SUMMARY Use of terms such as suspected, likely, or probable (associated with a specific diagnosis that is being evaluated, monitored, or treated as if it exists) are acceptable and can be restated in the discharge summary if not ruled out. MTDD
== END 2017-05-06 16:37 | disposition home or self-care (01) | DRG 189 ==
LOC: EDUNIT# → EDBD → N.ED 06:50 → N.EDINP 07:25 → SUATTDRO 07:25 → N.EDINP 08:49 → N.TELES 11:58
PROVIDERS: ADMIT Internal Medicine; ATTEND Internal Medicine

== ENCOUNTER 2017-05-30 03:53 | Inpatient (IN) ==
[2017-05-30] MEDS ORDERED: DEXTROSE 50% 25 GM/50 ML VIAL IV PRN (04:54)
[2017-05-30] MEDS ORDERED: HYDROmorphone 2 MG/1 ML VIAL IV STA (04:54)
[2017-05-30] MEDS ORDERED: ONDANSETRON 4 MG/2 ML VIAL IV PRN (04:54)
[2017-05-30] MEDS ORDERED: GLUCAGON 1 MG VIAL IM PRN (04:54)
[2017-05-30] MEDS ORDERED: HYDROmorphone 2 MG/1 ML VIAL ONE (05:02)
[2017-05-30] MEDS ORDERED: INFLUENZA VIRUS VACCINE 0.5 ML SYRINGE IM ONE (06:11)
[2017-05-30] MEDS: PANTOPRAZOLE 40 MG TABLET PO SCH (09:29)
[2017-05-30] MEDS: INSULIN REGULAR 100 UNIT/ML SUBCUT SCH ×4 (09:30→21:01)
[2017-05-30] MEDS: ENOXAPARIN 30 MG/0.3 ML SYRINGE SUBCUT SCH ×2 (09:31→10:43)
[2017-05-30] MEDS ORDERED: CALCIUM GLUCONATE 2,000 MG in SODIUM CHLORIDE 0.9% 100 ML IV ONE (15:00)
[2017-05-30] MEDS ORDERED: BISACODYL 5 MG TABLET PO PRN (16:31)
[2017-05-30] MEDS ORDERED: CALCIUM ACETATE 667 MG CAPSULE PO SCH (17:00)
[2017-05-30] MEDS: CALCIUM ACETATE 667 MG CAPSULE PO SCH (19:12)
[2017-05-30] MEDS: niCARdipine INJ 25 MG in SODIUM CHLORIDE 0.9% 240 ML IV SCH (19:13)
[2017-05-30] MEDS: ATORVASTATIN 40 MG TABLET PO SCH (21:00)
[2017-05-30] MEDS: CARVEDILOL 25 MG TABLET PO SCH (21:00)
[2017-05-30] MEDS: INSULIN GLARGINE 100 UNIT/ML SUBCUT SCH (21:02)
[2017-05-31] MEDS: niCARdipine INJ 25 MG in SODIUM CHLORIDE 0.9% 240 ML IV SCH ×3 (05:00→18:21)
[2017-05-31 06:22] LABS: Basophils % 0.4 % (0.0-0.8); Eosinophils # 0.1 10*3/uL (0.0-0.87); Eosinophils % 2.2 % (0.00-10.9); Hematocrit 22.3 VOL% (35.7-47.0); Hemoglobin 7.1 GM/DL (12.0-16.0); Immature Granulocytes % 0.4 %; Immature Granulocytes Absolute 0.02 #; Lymphocytes # 1.2 10*3/uL (1.4-4.0); Lymphocytes % 22.2 % (21.3-54.2); Mean Corpuscular HGB Conc 31.8 GM/DL (32-36); Mean Corpuscular Hemoglobin 29 PG (27-34); Mean Platelet Volume 13.1 FL (9.6-12.0); Monocytes # 0.6 10*3/uL (0.11-0.8); Monocytes % 10.2 % (1.7-12.7); Neutrophils # 3.5 10*3/uL (1.4-7.4); Neutrophils % 64.6 % (38.7-73.9); Platelet Count 120 T/CUMM (130-400); Red Blood Count 2.45 MC/CUMM (3.8-5.5); Red Cell Distribution Width 16.3 % (9.3-17.3); White Blood Count 5.4 T/CUMM (4-12)
[2017-05-31 06:46] LABS: Calcium 8.3 MG/DL (8.5-10.1); Osmolality,Calculated 282.8 MOS/KG (273-304); Potassium 4.1 MMOL/L (3.5-5.1)
[2017-05-31] MEDS: PANTOPRAZOLE 40 MG TABLET PO SCH (09:04)
[2017-05-31] MEDS: CARVEDILOL 25 MG TABLET PO SCH ×2 (09:04→20:49)
[2017-05-31] MEDS: CALCIUM ACETATE 667 MG CAPSULE PO SCH ×3 (09:05→18:21)
[2017-05-31] MEDS: INSULIN REGULAR 100 UNIT/ML SUBCUT SCH ×4 (09:06→20:49)
[2017-05-31] MEDS ORDERED: EPOETIN ALFA 10,000 UNIT/1 ML VIAL SUBCUT ONE (12:25)
[2017-05-31] MEDS ORDERED: SODIUM CHLORIDE 0.9% 250 ML IV PRN (14:23)
[2017-05-31] MEDS: INSULIN GLARGINE 100 UNIT/ML SUBCUT SCH (20:49)
[2017-05-31] MEDS: ATORVASTATIN 40 MG TABLET PO SCH (20:49)
[2017-06-01] MEDS: INSULIN REGULAR 100 UNIT/ML SUBCUT SCH ×4 (07:41→21:25)
[2017-06-01] MEDS: PANTOPRAZOLE 40 MG TABLET PO SCH (09:11)
[2017-06-01] MEDS: CARVEDILOL 25 MG TABLET PO SCH ×2 (09:11→21:20)
[2017-06-01] MEDS: CALCIUM ACETATE 667 MG CAPSULE PO SCH ×3 (09:11→17:21)
[2017-06-01 09:35] LABS: Basophils % 0.6 % (0.0-0.8); Eosinophils # 0.3 10*3/uL (0.0-0.87); Eosinophils % 6.1 % (0.00-10.9); Hematocrit 23.7 VOL% (35.7-47.0); Hemoglobin 7.5 GM/DL (12.0-16.0); Immature Granulocytes % 0.4 %; Immature Granulocytes Absolute 0.02 #; Lymphocytes # 1.2 10*3/uL (1.4-4.0); Mean Corpuscular HGB Conc 31.6 GM/DL (32-36); Mean Corpuscular Hemoglobin 29 PG (27-34); Mean Corpuscular Volume 90.8 FL (87-102); Mean Platelet Volume 12.3 FL (9.6-12.0); Monocytes # 0.6 10*3/uL (0.11-0.8); Monocytes % 12.3 % (1.7-12.7); Neutrophils # 3.1 10*3/uL (1.4-7.4); Neutrophils % 58.6 % (38.7-73.9); Platelet Count 116 T/CUMM (130-400); Red Blood Count 2.61 MC/CUMM (3.8-5.5); Red Cell Distribution Width 17.1 % (9.3-17.3); White Blood Count 5.2 T/CUMM (4-12)
[2017-06-01 10:00] LABS: Calcium 7.9 MG/DL (8.5-10.1); Osmolality,Calculated 291.7 MOS/KG (273-304); Potassium 4.2 MMOL/L (3.5-5.1)
[2017-06-01] MEDS: niCARdipine INJ 25 MG in SODIUM CHLORIDE 0.9% 240 ML IV SCH ×2 (11:10→20:24)
[2017-06-01] MEDS ORDERED: SODIUM CHLORIDE 0.9% 250 ML IV PRN (12:00)
[2017-06-01] MEDS: ASPIRIN EC 81 MG TABLET PO SCH (12:35)
[2017-06-01] MEDS: CLOPIDOGREL 75 MG TABLET PO SCH (12:35)
[2017-06-01] MEDS: DILTIAZEM CD 120 MG CAPSULE PO SCH (12:35)
[2017-06-01] MEDS: ATORVASTATIN 40 MG TABLET PO SCH (21:20)
[2017-06-01] MEDS: INSULIN GLARGINE 100 UNIT/ML SUBCUT SCH (21:29)
[2017-06-02 08:00] LABS: Basophils % 0.6 % (0.0-0.8); Eosinophils # 0.3 10*3/uL (0.0-0.87); Eosinophils % 6.2 % (0.00-10.9); Hematocrit 28.4 VOL% (35.7-47.0); Immature Granulocytes % 0.2 %; Immature Granulocytes Absolute 0.01 #; Lymphocytes # 0.9 10*3/uL (1.4-4.0); Lymphocytes % 17.3 % (21.3-54.2); Mean Corpuscular HGB Conc 33.1 GM/DL (32-36); Mean Corpuscular Hemoglobin 29 PG (27-34); Mean Corpuscular Volume 88.5 FL (87-102); Mean Platelet Volume 13.5 FL (9.6-12.0); Monocytes # 0.7 10*3/uL (0.11-0.8); Monocytes % 12.6 % (1.7-12.7); NRBC # 0.02 10*3/uL; Neutrophils # 3.4 10*3/uL (1.4-7.4); Neutrophils % 63.1 % (38.7-73.9); Platelet Count 109 T/CUMM (130-400); Red Cell Distribution Width 16.4 % (9.3-17.3); White Blood Count 5.3 T/CUMM (4-12)
[2017-06-02 08:07] LABS: Red Blood Count 3.21 MC/CUMM (3.8-5.5)
[2017-06-02 08:08] LABS: Hemoglobin 9.4 GM/DL (12.0-16.0)
[2017-06-02 08:41] LABS: Calcium 8.2 MG/DL (8.5-10.1); Osmolality,Calculated 293.7 MOS/KG (273-304); Potassium 4.6 MMOL/L (3.5-5.1)
[2017-06-02] MEDS: DILTIAZEM CD 120 MG CAPSULE PO SCH (09:18)
[2017-06-02] MEDS: INSULIN REGULAR 100 UNIT/ML SUBCUT SCH ×2 (09:18→13:53)
[2017-06-02] MEDS: CALCIUM ACETATE 667 MG CAPSULE PO SCH ×2 (09:19→13:52)
[2017-06-02] MEDS: PANTOPRAZOLE 40 MG TABLET PO SCH (09:19)
[2017-06-02] MEDS: CARVEDILOL 25 MG TABLET PO SCH (09:19)
[2017-06-02] MEDS: ASPIRIN EC 81 MG TABLET PO SCH (09:19)
[2017-06-02] MEDS: CLOPIDOGREL 75 MG TABLET PO SCH (09:19)
[2017-06-02] MEDS ORDERED: LIDOCAINE/PRILOCAINE CREAM 5 GM TUBE TOP PRN (09:47)
[2017-06-02] MEDS ORDERED: DOCUSATE SODIUM 100 MG CAPSULE PO PRN (09:47)
[2017-06-02] MEDS ORDERED: HEPARIN 10,000 UNIT/10 ML VIAL IV PRN (09:47)
[2017-06-02] MEDS ORDERED: ESTRADIOL 1 MG TABLET PO SCH (10:00)
[2017-06-02] MEDS ORDERED: CLOPIDOGREL 75 MG TABLET PO SCH (10:00)
[2017-06-02 13:49] VITALS: BP 138/63
[2017-06-02] MEDS ORDERED: ASPIRIN EC 81 MG TABLET PO SCH (21:00)
== END 2017-06-02 14:30 | disposition home or self-care (01) | DRG 189 ==
LOC: EDBD → EDUNIT# → N.ED 03:53 → N.EDINP 03:53 → SUATTDRO 04:54 → N.2E 05:27 → N.ICU 19:04 → N.5E 06-01 19:17 → N.SDSINP 06-01 19:17
PROVIDERS: ADMIT Internal Medicine; ATTEND Internal Medicine

== ENCOUNTER 2021-09-11 08:50 | Inpatient (IN) ==
[2021-09-11] MEDS ORDERED: DEXTROSE 50% 25 GM/50 ML VIAL IV PRN (08:51)
[2021-09-11] MEDS ORDERED: GLUCAGON 1 MG VIAL IM PRN ×2 (08:51→09:03)
[2021-09-11] MEDS ORDERED: CHLORHEXIDINE 4% SOLN 118 ML BOTTLE TOP SCH (09:00)
[2021-09-11] MEDS ORDERED: DEXTROSE 10% 25 GM/250 ML BAG IV PRN (09:03)
[2021-09-11 09:31] LABS: Basophils % 0.8 % (0.0-0.8); Eosinophils # 0.1 10*3/uL (0.0-0.87); Eosinophils % 1.7 % (0.00-10.9); Hematocrit 35.8 VOL% (35.7-47.0); Hemoglobin 11.2 GM/DL (12.0-16.0); Immature Granulocytes % 0.4 %; Immature Granulocytes Absolute 0.02 #; Lymphocytes # 0.8 10*3/uL (1.4-4.0); Lymphocytes % 16.1 % (21.3-54.2); Mean Corpuscular HGB Conc 31.3 GM/DL (32-36); Mean Corpuscular Volume 92.3 FL (87-102); Mean Platelet Volume 11.9 FL (9.6-12.0); Monocytes % 10.6 % (1.7-12.7); Neutrophils % 70.4 % (38.7-73.9); Platelet Count 117 T/CUMM (130-400); Red Blood Count 3.88 MC/CUMM (3.8-5.5); Red Cell Distribution Width 20.3 % (9.3-17.3); White Blood Count 5.2 T/CUMM (4-12)
[2021-09-11 09:59] LABS: Albumin 3.5 G/DL (3.4-5.0); Bilirubin,Total 0.4 MG/DL (0.20-1.00); Calcium 9.1 MG/DL (8.5-10.1); Potassium 4.3 MMOL/L (3.5-5.1); Total Protein 7.7 G/DL (6.4-8.2)
[2021-09-11 10:16] LABS: Allen Test Positive; Pt O2 Delivery Device Room Air
[2021-09-11 10:17] LABS: ABG Oxygen Saturation 98.4 % (95-100); ABG PH 7.469 (7.35-7.45); ABG TCO2 25.8 MMOL/L (23-27)
[2021-09-11] MEDS ORDERED: NITROGLYCERIN SL 0.4 MG TABLET SL PRN (11:30)
[2021-09-11] MEDS ORDERED: CLORAZEPATE 3.75 MG TABLET PO PRN (11:30)
[2021-09-11] MEDS: INSULIN REGULAR 100 UNIT/ML SUBCUT SCH ×3 (11:44→20:53)
[2021-09-11] MEDS: CHLORHEXIDINE 0.12% ORAL RINSE 60 ML BOTTLE SWISH/SPIT SCH ×2 (12:00→21:32)
[2021-09-11] MEDS ORDERED: hydrALAZINE 20 MG/1 ML VIAL IV PRN (12:33)
[2021-09-11] MEDS ORDERED: BISACODYL 5 MG TABLET PO PRN (14:03)
[2021-09-11] MEDS: cloNIDine 0.1 MG TABLET PO SCH ×2 (16:35→23:54)
[2021-09-11] MEDS: CALCIUM ACETATE 667 MG CAPSULE PO SCH (17:37)
[2021-09-11] MEDS: ASCORBIC ACID 500 MG TABLET PO SCH (21:20)
[2021-09-11] MEDS: MORPHINE 2 MG/1 ML SYRINGE IV PRN (21:34)
[2021-09-12 05:25] LABS: Basophils % 0.6 % (0.0-0.8); Eosinophils # 0.1 10*3/uL (0.0-0.87); Eosinophils % 2.1 % (0.00-10.9); Hematocrit 37.5 VOL% (35.7-47.0); Hemoglobin 11.6 GM/DL (12.0-16.0); Immature Granulocytes % 0.3 %; Immature Granulocytes Absolute 0.02 #; Lymphocytes # 1.5 10*3/uL (1.4-4.0); Mean Corpuscular HGB Conc 30.9 GM/DL (32-36); Mean Corpuscular Volume 93.1 FL (87-102); Mean Platelet Volume 13.4 FL (9.6-12.0); Monocytes % 11.3 % (1.7-12.7); Neutrophils % 62.7 % (38.7-73.9); Platelet Count 101 T/CUMM (130-400); Red Blood Count 4.03 MC/CUMM (3.8-5.5); Red Cell Distribution Width 19.9 % (9.3-17.3); White Blood Count 6.5 T/CUMM (4-12)
[2021-09-12 06:04] LABS: Albumin 3.6 G/DL (3.4-5.0); Bilirubin,Total 1.6 MG/DL (0.20-1.00); Calcium 9.2 MG/DL (8.5-10.1); Osmolality,Calculated 294.5 MOS/KG (273-304); Total Protein 7.5 G/DL (6.4-8.2)
[2021-09-12] MEDS: INSULIN REGULAR 100 UNIT/ML SUBCUT SCH ×4 (08:49→21:47)
[2021-09-12] MEDS: CHLORHEXIDINE 0.12% ORAL RINSE 60 ML BOTTLE SWISH/SPIT SCH ×2 (09:25→20:37)
[2021-09-12] MEDS: MORPHINE 2 MG/1 ML SYRINGE IV PRN ×2 (09:26→18:38)
[2021-09-12] MEDS: ASCORBIC ACID 500 MG TABLET PO SCH ×2 (09:28→20:36)
[2021-09-12] MEDS: ISOSORBIDE MONONITRATE 30 MG TABLET PO SCH (09:28)
[2021-09-12] MEDS: cloNIDine 0.1 MG TABLET PO SCH ×3 (09:28→20:37)
[2021-09-12] MEDS: CALCIUM ACETATE 667 MG CAPSULE PO SCH ×3 (09:28→16:42)
[2021-09-12] MEDS: CHLORHEXIDINE 4% SOLN 118 ML BOTTLE TOP SCH ×3 (09:33→20:37)
[2021-09-12] MEDS ORDERED: PHENYLEPHRINE DRIP 20 MG/250 ML PREMIX IV ONE (11:39)
[2021-09-12] MEDS ORDERED: HEPARIN/NACL 0.9% 2 UNITS/ML 1,000 UNIT/500 ML BAG IV ONE (11:39)
[2021-09-12] MEDS: ESTRADIOL 1 MG TABLET PO SCH (12:11)
[2021-09-12] MEDS ORDERED: ATORVASTATIN 40 MG TABLET PO SCH (21:00)
[2021-09-13] MEDS ORDERED: PAPAVERINE 60 MG/2 ML VIAL ONE (04:58)
[2021-09-13] MEDS ORDERED: VANCOMYCIN 500 MG VIAL ONE (04:58)
[2021-09-13] MEDS ORDERED: VANCOMYCIN 1,000 MG VIAL ONE (04:58)
[2021-09-13] MEDS ORDERED: CEFUROXIME INJ 1,500 MG in SODIUM CHLORIDE 0.9% 100 ML IV ONE (05:00)
[2021-09-13] MEDS ORDERED: AMINOCAPROIC ACID 5,000 MG/20 ML VIAL ONE (05:39)
[2021-09-13] MEDS ORDERED: LIDOCAINE 2% 5 ML VIAL ONE ×2 (05:39→12:20)
[2021-09-13] MEDS ORDERED: VECURONIUM 10 MG VIAL IV ONE ×3 (05:39→08:55)
[2021-09-13] MEDS ORDERED: MINERAL OIL/PETROLATUM OPH OINT 3.5 GM TUBE ONE (05:51)
[2021-09-13 06:01] LABS: Calcium 9.3 MG/DL (8.5-10.1); Osmolality,Calculated 277.2 MOS/KG (273-304); Potassium 4.7 MMOL/L (3.5-5.1)
[2021-09-13] MEDS ORDERED: MIDAZOLAM 10 MG/2 ML VIAL ONE ×4 (06:20→08:55)
[2021-09-13] MEDS ORDERED: SUFentanil 250 MCG/5 ML AMP ONE ×2 (06:21→07:51)
[2021-09-13] MEDS ORDERED: FAMOTIDINE 20 MG/2 ML VIAL IV ONE (06:24)
[2021-09-13 06:59] VITALS: BP 94/50
[2021-09-13] MEDS ORDERED: ePHEDrine 50 MG/ML VIAL ONE (07:09)
[2021-09-13] MEDS ORDERED: DIAZEPAM 5 MG TABLET PO ONE (07:30)
[2021-09-13] MEDS ORDERED: PANTOPRAZOLE 40 MG TABLET PO ONE (07:30)
[2021-09-13] MEDS: INSULIN REGULAR 100 UNIT/ML SUBCUT SCH (07:30)
[2021-09-13 07:45] LABS: ABG Base Excess 3.5 MMOL/L (-2.5-2.5); ABG HCO3 27.5 MMOL/L (20-26); ABG PCO2 30.5 MM HG (35-48); ABG PH 7.534 (7.35-7.45); ABG TCO2 23.2 MMOL/L (23-27); Glucose Heart Surgery 135 MG/DL (74-106); Hematocrit Heart Surgery 31.4 PERCENT (37-47); Hemoglobin Heart Surgery 10.2 G/DL (12.0-16.0); Ionized Calcium Arterial 1.09 MMOL/L (1.21-1.46); PCO2 Patient Temp Arterial 30.5 MMHG; PH Patient Temp Arterial 7.534; Patient Temperature 37 CELCIUS; Potassium Heart/CVR 4.7 MMOL/L (3.5-5.1); Sodium Heart/CVR 136 MMOL/L (135-145)
[2021-09-13] MEDS: CALCIUM ACETATE 667 MG CAPSULE PO SCH (08:00)
[2021-09-13] MEDS ORDERED: SODIUM CHLORIDE 0.9% 0 ML IV ONE (08:29)
[2021-09-13] MEDS ORDERED: SEVOFLURANE 1 UNIT/15 MINUTE INH ONE (08:29)
[2021-09-13] MEDS ORDERED: SODIUM CHLORIDE 0.9% 2,000 ML IV ONE (08:29)
[2021-09-13] MEDS ORDERED: DOBUTamine 500 MG/250 ML PREMIX IV ONE (08:29)
[2021-09-13 08:41] LABS: Hematocrit Heart Surgery 20.9 PERCENT (37-47); Hemoglobin Heart Surgery 6.7 G/DL (12.0-16.0); PCO2 Patient Temp Venous 30.7 MM HG; PH Patient Temp Venous 7.514; PO2 Patient Temp Venous 42.1 MM HG; Potassium Heart/CVR 5.3 MMOL/L (3.5-5.1); VBG HCO3 26.1 MEQ/L (24-28); VBG PCO2 33.8 MMHG (41-51); VBG PH 7.484; VBG PO2 48.2 MMHG (17-40); VBG Total CO2 24.1 MMOL/L
[2021-09-13] MEDS: ISOSORBIDE MONONITRATE 30 MG TABLET PO SCH (09:00)
[2021-09-13] MEDS: ASCORBIC ACID 500 MG TABLET PO SCH (09:00)
[2021-09-13] MEDS: cloNIDine 0.1 MG TABLET PO SCH (09:00)
[2021-09-13] MEDS: ESTRADIOL 1 MG TABLET PO SCH (09:00)
[2021-09-13] MEDS: CHLORHEXIDINE 0.12% ORAL RINSE 60 ML BOTTLE SWISH/SPIT SCH (09:00)
[2021-09-13] MEDS ORDERED: propofoL 200 MG/20 ML VIAL IV ONE (09:14)
[2021-09-13] MEDS ORDERED: diphenhydrAMINE 50 MG/1 ML VIAL ONE (09:14)
[2021-09-13] MEDS ORDERED: CALCIUM CHLORIDE 1,000 MG/10 ML VIAL IV ONE ×3 (09:15→11:14)
[2021-09-13 09:16] LABS: Hematocrit Heart Surgery 24.1 PERCENT (37-47); Hemoglobin Heart Surgery 7.7 G/DL (12.0-16.0); PCO2 Patient Temp Venous 28.2 MM HG; PH Patient Temp Venous 7.512; PO2 Patient Temp Venous 46.5 MM HG; Potassium Heart/CVR 5.3 MMOL/L (3.5-5.1); VBG Base Excess 0.2 MEQ/L (0-4); VBG HCO3 24.5 MEQ/L (24-28); VBG PCO2 32.6 MMHG (41-51); VBG PH 7.467; VBG PO2 56.7 MMHG (17-40)
[2021-09-13] MEDS ORDERED: SODIUM BICARBONATE 50 MEQ/50 ML VIAL IV ONE ×2 (09:39→12:22)
[2021-09-13] MEDS ORDERED: PHENYLEPHRINE DRIP 0 MG/0 ML PREMIX IV ONE (09:40)
[2021-09-13] MEDS ORDERED: POTASSIUM CHLORIDE RIDER 0 MEQ/0 ML PREMIX IV ONE (09:40)
[2021-09-13] MEDS ORDERED: NITROPRUSSIDE 50 MG/2 ML VIAL ONE (09:40)
[2021-09-13] MEDS ORDERED: CALCIUM CHLORIDE 1,000 MG/10 ML SYRINGE IV ONE (09:41)
[2021-09-13 09:49] LABS: Hematocrit Heart Surgery 29.2 PERCENT (37-47); Hemoglobin Heart Surgery 9.4 G/DL (12.0-16.0); PCO2 Patient Temp Venous 29.6 MM HG; PH Patient Temp Venous 7.458; PO2 Patient Temp Venous 56.6 MM HG; Potassium Heart/CVR 5.3 MMOL/L (3.5-5.1); VBG Base Excess -2.1 MEQ/L (0-4); VBG HCO3 22.5 MEQ/L (24-28); VBG Oxygen Saturation 88.4 %; VBG PCO2 29.6 MMHG (41-51); VBG PH 7.458; VBG PO2 56.6 MMHG (17-40); VBG Total CO2 19.2 MMOL/L
[2021-09-13] MEDS ORDERED: THROMBIN TOPICAL (RECOMBINANT) 5,000 UNIT VIAL TOP ONE (10:46)
[2021-09-13] MEDS ORDERED: EPINEPHrine 1 MG/ML VIAL ONE ×2 (10:57→11:14)
[2021-09-13] MEDS ORDERED: SODIUM CHLORIDE 0.9% 250 ML IV ONE ×2 (10:57)
[2021-09-13] MEDS ORDERED: EPINEPHrine 1 MG/10 ML SYRINGE ONE (11:31)
[2021-09-13 11:34] LABS: ABG Base Excess -14.7 MMOL/L (-2.5-2.5); ABG HCO3 13.1 MMOL/L (20-26); ABG PCO2 32.6 MM HG (35-48); Glucose Heart Surgery 290 MG/DL (74-106); Hematocrit Heart Surgery 25.7 PERCENT (37-47); Hemoglobin Heart Surgery 8.3 G/DL (12.0-16.0); Ionized Calcium Arterial > 2.81 MMOL/L (1.21-1.46); PCO2 Patient Temp Arterial 32.6 MMHG; PH Patient Temp Arterial 7.193; Patient Temperature 37 CELCIUS; Sodium Heart/CVR 136 MMOL/L (135-145)
[2021-09-13 11:35] LABS: ABG PH 7.193 (7.35-7.45)
[2021-09-13] MEDS ORDERED: AMIODARONE 150 MG/3 ML VIAL ONE (11:36)
[2021-09-13] MEDS ORDERED: ALBUMIN 25% 25 GM/100 ML VIAL IV ONE (12:20)
[2021-09-13] MEDS ORDERED: MAGNESIUM SULFATE 5 GM/10 ML VIAL IV ONE (12:20)
[2021-09-13] MEDS ORDERED: DEXTROSE 5% KCL 20 MEQ 40 MEQ/2,000 ML BAG IV ONE (12:21)
[2021-09-13] MEDS ORDERED: HEPARIN 10,000 UNIT/10 ML VIAL ONE (12:21)
[2021-09-13] MEDS ORDERED: PROTAMINE SULFATE 250 MG/25 ML VIAL IV ONE (12:21)
[2021-09-13] MEDS ORDERED: HEPARIN/NACL 0.9% 2 UNITS/ML 1,000 UNIT/500 ML BAG IV ONE (12:21)
[2021-09-13] MEDS ORDERED: methylPREDNISolone SOD SUC 1,000 MG/8 ML VIAL ONE (12:21)
[2021-09-13] MEDS ORDERED: MANNITOL 12.5 GM/50 ML VIAL IV ONE (12:22)
[2021-09-13] MEDS ORDERED: DEXTROSE 50% 25 GM/50 ML VIAL IV PRN ×2 (15:30)
[2021-09-13] MEDS ORDERED: ONDANSETRON 4 MG/2 ML VIAL IV PRN (15:30)
[2021-09-13] MEDS ORDERED: NITROPRUSSIDE 100 MG in DEXTROSE 5% 250 ML IV PRN (15:30)
[2021-09-13] MEDS ORDERED: PHENYLEPHRINE DRIP 40 MG/250 ML PREMIX IV PRN (15:30)
[2021-09-13] MEDS ORDERED: MAGNESIUM SULF RIDER 4 GM/100 ML PREMIX IV PRN (15:30)
[2021-09-13] MEDS ORDERED: VECURONIUM 10 MG VIAL IV PRN ×2 (15:30)
[2021-09-13] MEDS ORDERED: INSULIN REGULAR 100 UNIT/ML IV ONE (15:30)
[2021-09-13] MEDS ORDERED: LACTATED RINGERS 250 ML IV PRN (15:30)
[2021-09-13] MEDS ORDERED: MIDAZOLAM 10 MG/2 ML VIAL IV PRN (15:30)
[2021-09-13] MEDS ORDERED: CHLORHEXIDINE 4% SOLN 118 ML BOTTLE TOP PRN (15:30)
[2021-09-13] MEDS ORDERED: MORPHINE 10 MG/1 ML VIAL IV PRN (15:30)
[2021-09-13] MEDS ORDERED: ALBUMIN 5% 12.5 GM/250 ML VIAL IV PRN (15:30)
[2021-09-13] MEDS ORDERED: POTASSIUM CHLORIDE RIDER 20 MEQ/100 ML PREMIX IV PRN (15:30)
[2021-09-13] MEDS ORDERED: INSULIN REGULAR 100 UNIT/ML IV PRN (15:30)
[2021-09-13] MEDS ORDERED: ACETAMINOPHEN 650 MG SUPP RECTAL PRN (15:30)
[2021-09-13] MEDS ORDERED: CALCIUM CHLORIDE 1,000 MG/10 ML SYRINGE IV PRN (15:30)
[2021-09-13] MEDS ORDERED: MAGNESIUM SULF RIDER 2 GM/50 ML PREMIX IV PRN (15:30)
[2021-09-13] MEDS ORDERED: MIDAZOLAM 2 MG/2 ML VIAL IV PRN (15:30)
[2021-09-13] MEDS ORDERED: POTASSIUM CHLORIDE RIDER 10 MEQ/100 ML PREMIX IV PRN (15:30)
[2021-09-13] MEDS ORDERED: INSULIN REGULAR DRIP 100 ML IV SCH (15:30)
[2021-09-13] MEDS ORDERED: SODIUM CHLORIDE 0.45% 1,000 ML IV SCH ×2 (15:30)
[2021-09-13] MEDS ORDERED: CEFUROXIME INJ 1,500 MG in SODIUM CHLORIDE 0.9% 100 ML IV SCH (20:00)
[2021-09-13] MEDS ORDERED: CHLORHEXIDINE 0.12% ORAL RINSE 60 ML BOTTLE SWISH/SPIT SCH (21:00)
== END 2021-09-13 11:38 | disposition expired | DRG 235 ==
LOC: N.TELEN 08:50 → N.CVR 09-13 15:16 → UNDODISIN 09-13 15:32